=== PATIENT | female | born 1990 | race Two or more races ===

== ENCOUNTER 2020-06-09 17:40 | Emergency (ER) | payer OTHER ==
[~2020-06-09] VITALS: Ht 167.6 cm; Wt 61.0 kg
[2020-06-09 19:02] VITALS: BP 132/86
== END 2020-06-09 19:05 | disposition home or self-care (01) ==
LOC: ER 17:40
DX: O03.9 Complete or unspecified spontaneous abortion without complication (principal); Z3A.10 10 weeks gestation of pregnancy
CPT/HCPCS: 88305; 99283